=== PATIENT | female | born 1965 | race Caucasian/White ===

== ENCOUNTER 2017-02-10 19:31 | Inpatient (IN) | payer BC ==
[~2017-02-10] VITALS: Ht 172.7 cm; Wt 55.1 kg
[~2017-02-10 19:31] MED LIST: ADVIL200 MG PO; ALDACTONE50 MG PO; AMBIEN CR6.25 MG PO; CENTRUM MULTIG80 MCG PO; FOLIC ACID1 MG PO; LASIX20 MG PO; MILK THISTLE500 MG PO; OCEAN NASAL 0.645 ML BOTH NARES; Thiamine,Vitamin B1 PO; VALACYCLOVIR500 MG PO; VISINE MAX REDN15 ML BOTH EYES; ZADITOR 0.100 DROP/5 BOTH EYES
[2017-02-10] MEDS ORDERED: VITAMIN D400 UNIT PO (20:55)
[2017-02-11 15:50] VITALS: BP 120/68
[2017-02-12 08:04] VITALS: BP 100/65
[2017-02-12 15:46] VITALS: BP 114/65
[2017-02-13 08:12] VITALS: BP 103/58
[2017-02-13 15:49] VITALS: BP 114/76
[2017-02-14 08:03] VITALS: BP 121/69
[2017-02-14] MEDS ORDERED: BUPROPION XL150 MG PO (10:16)
[2017-02-14] MEDS ORDERED: ACAMPROSATE CA333 MG PO (10:16)
[2017-02-14] MEDS ORDERED: KETOTIFEN FUMARA5 M1 BOTH EYES (10:16)
== END 2017-02-14 12:04 | disposition home or self-care (01) | DRG 885 ==
LOC: 1WEST 19:31 → EDOF 19:31
DX: F33.1 Major depressive disorder, recurrent, moderate (principal); T42.4X2D Poisoning by benzodiazepines, intentional self-harm, subsequent encounter; T51.0X2D Toxic effect of ethanol, intentional self-harm, subsequent encounter; F10.20 Alcohol dependence, uncomplicated; Y90.6 Blood alcohol level of 120-199 mg/100 ml; K74.60 Unspecified cirrhosis of liver; C15.9 Malignant neoplasm of esophagus, unspecified
CPT/HCPCS: 71020